=== PATIENT | male | born 1975 ===

== ENCOUNTER 2020-06-28 06:53 | Day surgery (SDC) | payer OTHER ==
[~2020-06-28 06:53] MED LIST: CANABIS
[2020-06-28] MEDS ORDERED: PERCOCET 5-3251 EACH PO (10:30)
[2020-06-28] MEDS ORDERED: COLACE100 MG PO (10:30)
== END 2020-06-28 17:40 | disposition home or self-care (01) ==
LOC: CIR.AMB 06:53
PROVIDERS: ATTEND Surgery
DX: K62.0 Anal polyp (principal); K64.4 Residual hemorrhoidal skin tags; K64.0 First degree hemorrhoids; Z20.828 Contact with and (suspected) exposure to other viral communicable diseases